=== PATIENT | female | born 1975 | race Caucasian/White ===

== ENCOUNTER 2018-07-28 00:52 | Emergency (ER) | payer OTHER ==
[~2018-07-28] VITALS: Ht 170.2 cm; Wt 104.3 kg
[~2018-07-28 00:52] MED LIST: ADAL40PEN INJ; CARI350 PO; CRUTCH4 USE; DIAZ2 PO; DOXE25 PO; ESTR.1TPBW TOP; FOLI1 PO; MELA3 PO; OXYACE5T PO; ROPI2 PO; RXOXYACE PO
== END 2018-07-28 02:22 | disposition home or self-care (01) ==
LOC: ER 00:52
DX: M62.830 Muscle spasm of back (principal); V89.2XXA Person injured in unspecified motor-vehicle accident, traffic, initial encounter
CPT/HCPCS: 96374; 99284-25; J1170